=== PATIENT | male | born 2000 | race Caucasian/White ===

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

== ENCOUNTER 2019-05-21 18:18 | Emergency (ER) | payer OTHER ==
[2019-05-21] MEDS ORDERED: KETOROLAC 30 MG/ML VIAL IVP STA (18:32)
[2019-05-21] MEDS ORDERED: SODIUM CHLORIDE 0.9% 1,000 ML IV ONE ×2 (18:32→19:37)
[2019-05-21] MEDS ORDERED: ACETAMINOPHEN 325 MG TABLET PO STA (18:33)
[2019-05-21] MEDS ORDERED: DEXAMETHASONE 10 MG/ML VIAL IVP STA (18:33)
--- NOTE | 2019-05-21 18:34 | ED Physician Documentation ---
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 He has been sick since yesterday with fever, chills, sore throat and headache. He was seen at [facility] yesterday. Per him rapid strep and flu test were negative. He was put on Tamiflu. Nothing for the fever. Some decongestants as well. He denies cough. He is feeling worse today.) Review of Systems Constitutional: reports: Fever, Chills, Fatigue. denies: Myalgias Ears: denies: Ear pain Nose: reports: Rhinorrhea / runny nose Throat: reports: Sore throat Respiratory: denies: Dyspnea, Cough GI: denies: Nausea, Vomiting, Diarrhea PD PAST MEDICAL HISTORY - Past Medical History Cardiovascular: None Respiratory: None Neuro: None Endocrine/Autoimmune: Other (denies any connective tissue disorders himself/family) Musculoskeletal: None - Present Medications Home Medications: Ambulatory Orders Medication Instructions Recorded Confirmed Cyclobenzaprine [Flexeril] 10 mg PO TID PRN #20 tablet 10/22/18 Naproxen 500 mg PO BID #20 tablet 10/22/18 dexAMETHasone [Decadron] 4 mg PO DAILY #5 tablet 10/22/18 Clindamycin HCl [Clindamycin 300MG 300 mg PO Q6H #40 capsule 05/21/19 CAP] Ibuprofen [Motrin] 800 mg PO Q8H PRN #30 tablet 05/21/19 - Allergies Allergies/Adverse Reactions: Allergies Allergy/AdvReac Type Severity Reaction Status Date / Time Penicillins Allergy Hives Verified 05/21/19 18:23 - Social History Does the pt smoke?: No Smoking Status: Never smoker PD ED PE NORMAL - Vitals Vital signs reviewed: Yes - General General: Alert and oriented X 3, No acute distress (Severe exudative tonsillitis ) - Neck Neck: Supple, no meningeal sign - Cardiac Cardiac: RRR, No murmur - Respiratory Respiratory: No respiratory distress, Clear bilaterally - Abdomen Abdomen: Non tender - Derm Derm: No rash - Neuro Neuro: Alert and oriented X 3, Normal speech Results - Vitals Vitals: Vital Signs - 24 hr 05/21/19 18:23 Temperature 39.2 C H Heart Rate 122 H Respiratory 18 Rate Blood Pressure 123/77 O2 Saturation 100 Oxygen O2 Source Room air - Labs Labs: Laboratory Tests 05/21/19 05/21/19 05/21/19 18:39 18:39 18:39 WBC 14.7 H RBC 5.07 Hgb 16.1 Hct 45.4 MCV 89.5 MCH 31.8 H MCHC 35.5 RDW 11.7 L Plt Count 233 MPV 10.3 Neut # (Auto) Not Reportable Lymph # (Auto) Not Reportable Giles # (Auto) Not Reportable Eos # (Auto) Not Reportable Baso # (Auto) Not Reportable Absolute Nucleated RBC Not Reportable Total Counted 100 Band Neuts % (Manual) 7 Reactive Lymphs % (Man) 2 Abnorm Lymph % (Manual) 0 Nucleated RBC % Not Reportable Neutrophils # (Manual) 12.3 H Lymphocytes # (Manual) 1.0 L Monocytes # (Manual) 1.3 H Eosinophils # (Manual) 0.0 Basophils # (Manual) 0.0 Differential Comment MANUAL DIFFERENTIAL Platelet Estimate NORMAL (130-450,000) Platelet Morphology NORMAL APPEARANCE RBC Morph Micro Appear NORMAL APPEARANCE Sodium 134 L Potassium 3.7 Chloride 94 L Carbon Dioxide 24 Anion Gap 16.0 H BUN 13 Creatinine 1.0 Estimated GFR (MDRD) 95 Glucose 116 H Lactic Acid Calcium 9.5 Total Bilirubin 1.2 H AST 18 ALT 20 Alkaline Phosphatase 60 Total Protein 8.0 Albumin 4.3 Globulin 3.7 Albumin/Globulin Ratio 1.2 Lipase 21 L Infectious Giles Assay NEGATIVE Group A Strep Rapid 05/21/19 05/21/19 18:39 18:55 WBC RBC Hgb Hct MCV MCH MCHC RDW Plt Count MPV Neut # (Auto) Lymph # (Auto) Giles # (Auto) Eos # (Auto) Baso # (Auto) Absolute Nucleated RBC Total Counted Band Neuts % (Manual) Reactive Lymphs % (Man) Abnorm Lymph % (Manual) Nucleated RBC % Neutrophils # (Manual) Lymphocytes # (Manual) Monocytes # (Manual) Eosinophils # (Manual) Basophils # (Manual) Differential Comment Platelet Estimate Platelet Morphology RBC Morph Micro Appear Sodium Potassium Chloride Carbon Dioxide Anion Gap BUN Creatinine Estimated GFR (MDRD) Glucose Lactic Acid 1.2 Calcium Total Bilirubin AST ALT Alkaline Phosphatase Total Protein Albumin Globulin Albumin/Globulin Ratio Lipase Infectious Giles Assay Group A Strep Rapid Negative PD MEDICAL DECISION MAKING - ED course ED course: 19-year-old gentleman presents with exudative tonsillitis, high fever. He has a white count. He is a ministered IV fluids, dexamethasone, Toradol, and Tylenol with improvement in his symptoms. Given the white counts and the appearance of his tonsils he is placed on clindamycin noting his penicillin allergy. Departure - Departure Disposition: 01 Home, Self Care Clinical Impression: Exudative tonsillitis Condition: Good Record reviewed to determine appropriate education?: Yes Instructions: ED Peritonsillar Infec Abx No I andD Prescriptions: Clindamycin HCl [Clindamycin 300MG CAP] 300 mg PO Q6H #40 capsule Ibuprofen [Motrin] 800 mg PO Q8H PRN #30 tablet PRN Reason: PAIN &/OR FEVER Comments: As discussed, your syndrome is really not consistent with influenza and as such I think it is safe to stop the Tamiflu and since you are not congested there is really no point in taking the Sudafed. Take ibuprofen, as needed for the fevers and pain. Return for new or worsening symptoms and recheck with your doctor on Sunday.
[2019-05-21 18:42] LABS: BASOPHILS % (AUTO) 0.6 %; EOSINOPHILS % (AUTO) 0.4 %; HGB - HEMOGLOBIN 16.1 g/dL (14.0-18.0); LYMPHOCYTES % (AUTO) 7.3 %; MEAN CORPUSCULAR HEMOGLOBIN 31.8 pg (27.0-31.0); MEAN CORPUSCULAR HGB CONC 35.5 g/dL (32.0-36.0); MEAN CORPUSCULAR VOLUME 89.5 fL (80.0-94.0); MEAN PLATELET VOLUME 10.3 fL (7.4-11.4); MONOCYTES % (AUTO) 11.5 %; NEUTROPHILS % (AUTO) 79.6 %; PLT - PLATELET COUNT 233 10^3/uL (130-450); RED BLOOD COUNT 5.07 10^6/uL (4.70-6.10); RED CELL DISTRIBUTION WIDTH 11.7 % (12.0-15.0); WHITE BLOOD COUNT 14.7 x10^3/uL (4.8-10.8)
[2019-05-21 18:56] LABS: ALBUMIN 4.3 g/dL (3.2-5.5); ALBUMIN/GLOBULIN RATIO 1.2 (1.0-2.2); BILIRUBIN,TOTAL 1.2 mg/dL (0.2-1.0); CALCIUM 9.5 mg/dL (8.5-10.3)
[2019-05-21 18:58] LABS: ABNORMAL LYMPHS % (MANUAL) 0 %
[2019-05-21 19:28] LABS: BAND NEUTROPHILS % (MANUAL) 7 %; LYMPHOCYTES % (MANUAL) 5 %; MONOCYTES # (MANUAL) 1.3 10^3/uL (0.0-1.0)
[2019-05-21 19:30] LABS: DIFFERENTIAL COMMENT MANUAL DIFFERENTIAL; PLATELET ESTIMATE, MANUAL NORMAL (130-450,000) (NORMAL); PLATELET MORPHOLOGY NORMAL APPEARANCE (NORMAL); RBC MORPHOLOGY (MULTIPLE) NORMAL APPEARANCE (NORMAL)
[2019-05-21] MEDS ORDERED: CLINDAMYCIN 600 MG/50 ML 50 ML IV ONE (19:37)
[2019-05-21 20:18] VITALS: BP 112/67
== END 2019-05-21 20:35 | disposition home or self-care (01) ==
LOC: ED 18:18
DX: J03.90 Acute tonsillitis, unspecified (principal); Z88.0 Allergy status to penicillin
CPT/HCPCS: 36415; 80053; 83605; 83690; 85025; 86308; 87070; 87430; 96361; 96365; 96375; 99283; A9270

== ENCOUNTER 2019-08-14 20:27 | Emergency (ER) | payer OTHER ==
[2019-08-14 20:34] VITALS: BP 118/80
--- NOTE | 2019-08-14 20:36 | ED Physician Documentation ---
PD KARINE CONTE - Stated complaint Stated Complaint: SORE THROAT/MOUTH SORES/FEVER - Chief complaint Chief Complaint: Fever - History obtained from History obtained from: Patient - History of Present Illness Timing - onset: Today Timing - details: Abrupt onset Location: Mouth Recently seen: Not recently seen - Additional information Additional information: This is a 19-year-old who presents with a longstanding history of cold sores and had a cold sore about a week ago that healed and then today it just started all over his lips and is much worse than he is ever had a before. He did take 2 valacyclovir Tablets today it just seems to be getting worse. His throat is "scratchy". He had strep 2 or 3 months ago and was treated with antibiotics. He says he gets recurrent cold sores about once a month recently. Today he had some subjective fevers. Denies ear pain or stuffy nose. He did have recent unprotected sex and that is when these lesions got worse after 4-5 days. He was wondering about blood testing. Review of Systems Constitutional: reports: Fever Ears: denies: Ear pain Nose: denies: Rhinorrhea / runny nose, Congestion Throat: reports: Oral lesions / sores (On his lips. He is not sure if he has any lesions inside his mouth.), Sore throat Respiratory: denies: Cough PD PAST MEDICAL HISTORY - Past Medical History Cardiovascular: None Respiratory: None Neuro: None Endocrine/Autoimmune: Other (denies any connective tissue disorders himself/family) Musculoskeletal: None - Past Surgical History General: Appendectomy - Present Medications Home Medications: Ambulatory Orders Medication Instructions Recorded Confirmed Cyclobenzaprine [Flexeril] 10 mg PO TID PRN #20 tablet 10/22/18 Naproxen 500 mg PO BID #20 tablet 10/22/18 dexAMETHasone [Decadron] 4 mg PO DAILY #5 tablet 10/22/18 Clindamycin HCl [Clindamycin 300MG 300 mg PO Q6H #40 capsule 05/21/19 CAP] Ibuprofen [Motrin] 800 mg PO Q8H PRN #30 tablet 05/21/19 Acyclovir 400 mg PO 5XD #35 tablet 08/14/19 - Allergies Allergies/Adverse Reactions: Allergies Allergy/AdvReac Type Severity Reaction Status Date / Time Penicillins Allergy Hives Verified 08/14/19 20:31 - Social History Does the pt smoke?: No Smoking Status: Never smoker Does the pt drink ETOH?: No Does the pt have substance abuse?: No - Immunizations Immunizations are current?: Yes PD ED PE NORMAL - Vitals Vital signs reviewed: Yes - General General: Alert and oriented X 3, No acute distress, Well developed/nourished - HEENT HEENT: Atraumatic, PERRL, EOMI, Ears normal, Moist mucous membranes, Other (There are a multitude of approximately 6-7 vesicular appearing lesions on the vermilion border of both upper and lower lips. Oropharynx has moist mucous membranes although there is some erythema to the tonsils and tonsillar pillars there is no exudate or obvious intraoral lesions. Neck is supple without lymphadenopathy.) - Neck Neck: No: No adenopathy - Respiratory Respiratory: No respiratory distress Results - Vitals Vitals: Vital Signs - 24 hr 08/14/19 20:31 Temperature 37.4 C Heart Rate 80 Respiratory 14 Rate Blood Pressure 118/80 O2 Saturation 100 Oxygen O2 Source Room air PD MEDICAL DECISION MAKING - ED course ED course: These have the clear appearance of herpes type virus. Certainly concerning with his recurrent history and now a more severe outbreak that there could be resistance to the valacyclovir developing and this was discussed with him. In terms of STD testing I [facility] since we do not have access to immediate results anyway and he stated understanding. Will put him on acyclovir 5 times a day and have prescribed Lidex gel as well. Departure - Departure Disposition: 01 Home, Self Care Clinical Impression: Herpes simplex labialis Condition: Good Instructions: ED Herpes Simplex Virus Type 2, ED Herpes Simplex Virus Type 1 Follow-Up: [facility] [Provider Group] Prescriptions: Acyclovir 400 mg PO 5XD #35 tablet Comments: Start the acyclovir 5 times a day tonight. Take that for a week. Use the Lidex gel 3 times a day for the next 5 days. [place] blood testing that you want done and to talk about prophylactic therapy to prevent the cold sores. Tylenol or ibuprofen if needed for pain or fever.
== END 2019-08-14 21:23 | disposition home or self-care (01) ==
LOC: ED 20:27
DX: B00.1 Herpesviral vesicular dermatitis (principal)
CPT/HCPCS: 99282; 99284

== ENCOUNTER 2020-07-19 21:22 | Emergency (ER) | payer OTHER ==
[2020-07-19 21:30] VITALS: BP 117/66
--- NOTE | 2020-07-19 21:31 | ED Physician Documentation ---
PD HPI URI - Stated complaint Stated Complaint: LOSS OF SMELL - Chief complaint Chief Complaint: General - History obtained from History obtained from: Patient - History of Present Illness Timing - onset: How many days ago (3) Timing duration: Days (3) Timing details: Gradual onset, Still present Associated symptoms: Nasal congestion (for 1-2 days), Sore throat (for a day). No: Fever, Chills Contributing factors: Travel (Went with girlfriend to visit family in [place] over Jul 06 and returned 4 days ago. He and his friend had some congestion and sore throat, and now patient with just loss of smell. Girlfriend with worsened cough. They are quarantined at work since they traveled.). No: Sick contact, Immunocompromised Similar symptoms before: Has not had sx before Recently seen: Not recently seen Review of Systems Constitutional: denies: Fever, Chills, Fatigue Nose: reports: Rhinorrhea / runny nose (for couple days), Other (loss of smell for 3 days) Throat: reports: Sore throat (for a day) Respiratory: denies: Dyspnea, Cough GI: denies: Nausea, Vomiting, Diarrhea Skin: denies: Rash Neurologic: denies: Altered mental status, Headache PD PAST MEDICAL HISTORY - Past Medical History Cardiovascular: None Respiratory: None Neuro: None Endocrine/Autoimmune: Other (denies any connective tissue disorders himself/family) GI: None : None HEENT: None Psych: None Musculoskeletal: None Derm: None - Past Surgical History Past Surgical History: Yes General: Appendectomy - Present Medications Home Medications: Ambulatory Orders Medication Instructions Recorded Confirmed No Known Home Medications 07/19/20 07/19/20 - Allergies Allergies/Adverse Reactions: Allergies Allergy/AdvReac Type Severity Reaction Status Date / Time Penicillins Allergy Hives Verified 07/19/20 21:27 - Social History Does the pt smoke?: No Smoking Status: Never smoker Does the pt drink ETOH?: No Does the pt have substance abuse?: No - Immunizations Immunizations are current?: Yes - POLST Patient has POLST: No PD ED PE NORMAL - Vitals Vital signs reviewed: Yes - General General: Alert and oriented X 3, No acute distress, Well developed/nourished - HEENT HEENT: Ears normal, Moist mucous membranes, Pharynx benign - Neck Neck: Supple, no meningeal sign, No adenopathy - Cardiac Cardiac: RRR, No murmur - Respiratory Respiratory: Clear bilaterally - Derm Derm: Normal color, Warm and dry, No rash - Extremities Extremities: Normal ROM s pain - Neuro Neuro: Alert and oriented X 3, No motor deficit, Normal speech Results - Vitals Vitals: Vital Signs - 24 hr 07/19/20 21:28 Temperature 36.6 C Heart Rate 62 Respiratory 16 Rate Blood Pressure 117/66 O2 Saturation 98 Oxygen O2 Source Room air PD MEDICAL DECISION MAKING - ED course Complexity details: considered differential (consider environmental effects (sinus/throat irritation from motel they were in, airplane; versus infectious, viral (with concern for COVID in particular). Very low symptoms. ), d/w patient Departure - Departure Disposition: 01 Home, Self Care Clinical Impression: Loss of sense of smell, Nasal congestion Condition: Stable Record reviewed to determine appropriate education?: Yes Follow-Up: ISIDRA BOND [Primary Care Provider] - Comments: Stay well hydrated. Tylenol or IBuprofen for pains or aches. You have a Covid test pending. You need to self quarantine until the result is done and negative. Do not leave your house. Do not get near anybody. The results should be done in 48 to 72 hours, but sometimes longer. We will call with a positive result, the fastest way to get a negative result for confirmation though is to go to the hospital website at [email or web address], click on the my [facility] tab and sign up for the patient portal. If any friends or family get sick and would like to have a Covid test done, but do not have signs or symptoms that would necessitate being hospitalized, we encourage testing through our coronavirus swabbing station, call [phone] to schedule an appointment. Discharge Date/Time: 07/19/20 21:56
== END 2020-07-19 21:56 | disposition home or self-care (01) ==
LOC: ED 21:22
DX: U07.1 COVID-19 (principal)
CPT/HCPCS: 99283; 99284